=== PATIENT | female | born 1955 | race Asian ===

== ENCOUNTER 2018-12-05 08:32 | Day surgery (SDC) | payer MEDICARE, OTHER ==
[~2018-12-05] VITALS: Ht 149.9 cm; Wt 65.6 kg
[2018-12-05 09:29] VITALS: Ht 149.9 cm; Wt 65.6 kg
[2018-12-05] MEDS ORDERED: DICL50TA11 PO (09:37)
[2018-12-05] MEDS ORDERED: FER325 PO (09:37)
[2018-12-05] MEDS ORDERED: PRAV40TA76 PO (09:37)
[2018-12-05] MEDS ORDERED: MONT10TA24 PO (09:37)
[2018-12-05] MEDS ORDERED: LOSA100T15 PO (09:37)
[2018-12-05] MEDS ORDERED: CARV25TA79 PO (09:37)
[2018-12-05] MEDS ORDERED: HYDR200T39 PO (09:37)
[2018-12-05] MEDS ORDERED: GABA-526 PO (09:37)
[2018-12-05] MEDS ORDERED: OMEP40CA6 PO (09:37)
[2018-12-05] MEDS ORDERED: BUPR1PAT6 TD (10:09)
[2018-12-05] MEDS ORDERED: PROPOFOL 40 ML ONE (10:09)
--- NOTE | 2018-12-05 10:13 | PREAC ---
Date/Time of Note Date/Time of Note DATE: 12/05/18 TIME: 10:10 Anesthesia Eval and Record Evaluation Time Pre-Procedure Interview DATE: 12/05/18 TIME: 10:10 Age 63 Sex female NPO: 8 hrs Preoperative diagnosis Occult Blood Planned procedure Colonoscopy Past Medical History Past Medical History: Includes Cardio: HTN, Dyslipidemia Musculoskeletal: Osteoarthritis Renal: Other (SLE) Heme: Anemia Surgery & Anesthesia Issues No known issue Meds Anticoagulation: No Beta Virginie within 24 hr: Yes Reason Beta Virginie not given: Pt. not on B-Virignie Reported Medications Buprenorphine (BUTRANS) 1 Each Patch.tdwk, 1 EACH TD 12/05/18 Hydroxychloroquine Sulfate* (Hydroxychloroquine Sulfate*) 200 Mg Tablet, 200 MG PO DAILY, TAB 12/05/18 Ferrous Sulfate* (Ferrous Sulfate*) 325 Mg Tabec, 100 MG PO BID, TAB 12/05/18 Gabapentin* (Gabapentin*) 600 Mg Tablet, 600 MG PO DAILY, #60 TAB 12/05/18 Diclofenac Sodium* (Diclofenac Sodium*) 50 Mg Tablet.dr, 50 MG PO BID WITH MEALS, #60 TAB 12/05/18 Omeprazole* (Omeprazole*) 40 Mg Capsule.dr, 40 MG PO DAILY, #30 CAP 12/05/18 Pravastatin Sodium* (Pravastatin Sodium*) 40 Mg Tablet, 40 MG PO HS, TAB 12/05/18 Carvedilol* (Carvedilol*) 25 Mg Tablet, 25 MG PO BID, #60 TAB 12/05/18 Losartan Potassium* (Losartan Potassium*) 100 Mg Tablet, 100 MG PO DAILY, TAB 12/05/18 Montelukast Sodium* (Montelukast Sodium*) 10 Mg Tablet, 10 MG PO QHS, #30 TAB 12/05/18 Meds reviewed: Yes Allergies Coded Allergies: No Known Allergy (Unverified , 12/05/18) Allergies Reviewed: Yes Labs/Studies Labs Reviewed: Reviewed by anesthesiologist test: N/A Pre-procedure Exam Airway: Adequate mouth opening Mallampati: Mallampati II Teeth: Normal Lung: Normal Heart: Normal ASA Physical Status ASA physical status: 3 Emergency: None Planned Anesthetic General/MAC: MAC Pre-operative Attestations Prior to commencing anesthesia and surgery, the patient was re-evaluated, there was verification of: *The patient's identity *The results of appropriate recent lab work and preoperative vital signs *The above evaluation not changing prior to induction *Anesthetic plan, risk benefits, alternative and complications discussed with patient/family; questions answered; patient/family understands, accepts and wishes to proceed. CANELO SELF MD Dec 05, 2018 10:13
[2018-12-05 10:35] VITALS: BP 194/102; PULSE 89; RESP 16
--- NOTE | 2018-12-05 11:15 | PAC ---
Date/Time of Note Date/Time of Note DATE: 12/05/18 TIME: 11:15 Post-Anesthesia Notes Post-Anesthesia Note Last documented vital signs VSS Activity: WNL Respiratory function: WNL Cardiovascular function: WNL Mental status: Baseline Pain reasonably controlled: Yes Hydration appropriate: Yes Nausea/Vomiting absent: Yes CANELO SELF MD Dec 05, 2018 11:15
[2018-12-05 11:36] VITALS: BP 173/102; PULSE 70; RESP 16
[2018-12-05 11:40] VITALS: BP 181/101; PULSE 72; RESP 18
== END 2018-12-05 12:54 | disposition home or self-care (01) ==
LOC: GIL 08:32
PROVIDERS: ATTEND Internal Medicine Gastroenterology
DX: K92.1 Melena (principal); K31.9 Disease of stomach and duodenum, unspecified; K64.8 Other hemorrhoids; K22.70 Barrett's esophagus without dysplasia; K44.9 Diaphragmatic hernia without obstruction or gangrene; I10 Essential (primary) hypertension; E78.5 Hyperlipidemia, unspecified
CPT/HCPCS: 88305; 88312; 88313